=== PATIENT | female | born 1955 | race Caucasian/White ===

== ENCOUNTER → 2018-08-31 | Outpatient (CLI) | payer MEDICARE, OTHER ==
[~2018-08-31] MED LIST: REGADENOSON 0.4 MG/5 ML SYRINGE IV ONE
--- NOTE | 2018-08-31 11:03 | US ---
EXAMINATION TYPE: US carotid duplex BILAT DATE OF EXAM: 08/31/2018 COMPARISON: NONE CLINICAL HISTORY: Carotid Bruit R09.89, Athleroscerosis I70.90. EXAM MEASUREMENTS: RIGHT: Peak Systolic Velocity (PSV) cm/sec ----- Right CCA: 77.8 ----- Right ICA: 94.3 ----- Right ECA: 118.2 ICA/CCA ratio: 1.2 RIGHT: End Diastole cm/sec ----- Right CCA: 23.5 ----- Right ICA: 16.1 ----- Right ECA: 19.7 LEFT: Peak Systolic Velocity (PSV) cm/sec ----- Left CCA: 106.1 ----- Left ICA: 122.2 ----- Left ECA: 106.1 ICA/CCA ratio: 1.2 LEFT: End Diastole cm/sec ----- Left CCA: 22.0 ----- Left ICA: 26.8 ----- Left ECA: 15.5 VERTEBRALS (direction of flow): Right Vertebral: Antegrade Left Vertebral: Antegrade Rhythm: Arrhythmia Very tiny amount of calcified plaque Right ICA No elevated velocities IMPRESSION: 1. Atheromatous plaquing present on the right which could contribute to narrowing of less than 50%. Criteria for Assigning % of Stenosis / Diameter reduction (Estimation based on the indirect measurements of the internal carotid artery velocities (ICA PSV). 1. Normal (no stenosis)=ICA PSV < 125 cm/s: ratio < 2.0: ICA EDV<40 cm/s. 2. Less than 50% stenosis=ICA PSV < 125 cm/s: ratio < 2.0: ICA EDV<40 cm/s. 3. 50 to 69% stenosis=ICA PSV of 125 to 230 cm/s: ration 2.0 ? 4.0: ICA EDV 40-100 cm/s. 4. Greater than 70% stenosis to near occlusion= ICA PSV > 230 cm/s: ratio > 4.0: ICA EDV > 100 cm/s. 5. Near occlusion= ICA PSV velocities may be low or undetectable: variable ratio and ICA EDV. 6. Total occlusion=unable to detect flow.
--- NOTE | 2018-08-31 11:10 | NM ---
EXAMINATION TYPE: NM stress lexiscan cardiolite DATE OF EXAM: 08/31/2018 COMPARISON: NONE HISTORY: Carotid bruit, atherosclerosis TECHNIQUE: After the intravenous administration of 10.32 mCi Tc 99m Sestamibi - Cardiolite resting S PECT images acquired 45 minutes post injection. The patient received 0.4mg Lexiscan, 26.3 mCi Tc 99m Sestamibi - Stress images obtained [address] injection FINDINGS: There is diminished radiotracer accumulation within the inferior apical wall on the stress images. This has more normal radiotracer distribution on the resting images. Findings are compatible some stress-induced ischemic change. There is dyskinesia of the distal left ventricle. This is predominantly along the anterior and inferi or olivares. The cardiac base has a more normal appearance The ejection fraction of 47% is low. Normal greater than 50%. IMPRESSION: 1. Stress-induced ischemic change inferior cardiac apex. 2. Dyskinesia of the inferior and anterior cardiac apex. This is likely contributing to the low eject ion fraction of 47%.
--- NOTE | 2018-08-31 11:59 | ECHOF ---
Referral Reason:R09.89 MEASUREMENTS -------- HEIGHT: 175.3 cm WEIGHT: 145.2 kg BP: RVIDd: 2.7 cm (< 3.3) IVSd: 1.3 cm (0.6 - 1.1) LVIDd: 4.9 cm (3.9 - 5.3) LVPWd: 1.3 cm (0.6 - 1.1) IVSs: 1.6 cm LVIDs: 2.6 cm LVPWs: 1.6 cm LAESV Index (A-L): 19.93 ml/m Ao Diam: 2.9 cm (2.0 - 3.7) AV Cusp: 1.6 cm (1.5 - 2.6) LA Diam: 3.6 cm (2.7 - 3.8) MV E Nba: 0.85 m/s MV DecT: 220 ms MV A Nba: 0.82 m/s MV E/A Ratio: 1.04 RAP: 5.00 mmHg RVSP: 12.42 mmHg FINDINGS -------- Sinus rhythm. This was a technically adequate study. The left ventricular size is normal. There is mild concentric left ventricular hypertrophy. Overa ll left ventricular systolic function is normal with, an EF between 55 - 60 %. The right ventricle is normal in size and function. Normal LA size by volume 22+/-6 ml/m2. The right atrium is normal in size. There is mild aortic valve sclerosis. There is no evidence of aortic regurgitation. There is no e vidence of aortic stenosis. The mitral valve leaflets are mildly thickened. There is trace to mild mitral regurgitation. Trace tricuspid regurgitation present. Right ventricular systolic pressure is normal at < 35 mmHg. There is no evidence of pulmonary hypertension. The aortic root size is normal. Normal inferior vena cava with normal inspiratory collapse consistent with estimated right atrial pre ssure of 5 mmHg. There is no pericardial effusion. CONCLUSIONS -------- 1. Sinus rhythm. 2. This was a technically adequate study. 3. The left ventricular size is normal. 4. There is mild concentric left ventricular hypertrophy. 5. Overall left ventricular systolic function is normal with, an EF between 55 - 60 %. 6. Normal LA size by volume 22+/-6 ml/m2. 7. There is mild aortic valve sclerosis. 8. The mitral valve leaflets are mildly thickened. 9. There is trace to mild mitral regurgitation. 10. Trace tricuspid regurgitation present. 11. Right ventricular systolic pressure is normal at < 35 mmHg. 12. There is no evidence of pulmonary hypertension. 13. The aortic root size is normal. 14. There is no pericardial effusion. MENAGERIE SUPERINTENDENT: Jeremie Koo RDCS
--- NOTE | 2018-08-31 12:16 | EST ---
EXERCISE STRESS DATE OF SERVICE: 08/31/2018 AGE: 63 SEX: Female HT: 5'9" WT: 320 pounds PROTOCOL: Lexiscan Cardiolite STAGE: DURATION OF EXERCISE: HEART RATE REST: 58 BLOOD PRESSURE REST: 137/70 MAXIMUM HEART RATE ACHIEVED: 70 MAXIMUM BLOOD PRESSURE: 170/82 85% MPHR: 100% MPHR: METS: INDICATIONS: Carotid bruit. CLINICAL INFORMATION: Baseline EKG revealed normal sinus rhythm without significant ST-T changes. With Lexiscan administration, patient did not have any significant symptoms. Heart rate changed from 58 to 70 beats per minute blood pressure changed from 137/70 to 170/82. EKG was unremarkable. Rare PVCs were noted. By EKG criteria, this is unremarkable Lexiscan stress test with isolated PVCs. The nuclear scan results, which are more pertinent, will be reported by the radiologist. SALOMÓN / PERLA: [id number] /
== END | disposition home or self-care (01) ==
LOC: RADNMMAIN 07:40
PROVIDERS: ATTEND Family Medicine
DX: I08.0 Rheumatic disorders of both mitral and aortic valves (principal); I65.21 Occlusion and stenosis of right carotid artery
CPT/HCPCS: 93017; 93306; 93880; 78452; A9500; J2785

== ENCOUNTER → 2021-05-20 | Outpatient (CLI) | payer MEDICARE, OTHER ==
--- NOTE | 2021-05-20 16:04 | CT ---
EXAMINATION TYPE: CT chest wo con DATE OF EXAM: 05/20/2021 COMPARISON: None HISTORY: Dyspnea CT DLP: 802 mGycm, Automated exposure control for dose reduction was used. CONTRAST: Performed injected with 0 mL of Isovue 300. TECHNIQUE: Axial images were obtained at 5 mm thick sections. Reconstructed images are reviewed on [employer] computer in the coronal plane. FINDINGS: Portion of the thyroid visualized is normal. No suspicious lung nodules or focal infiltrates are present. Tracheobronchial tree as visualized appe ars normal. No enlarged mediastinal or hilar adenopathy is evident. The ascending aorta diameter at the level o f the main pulmonary artery is 3.5 cm. The main pulmonary artery diameter at the bifurcation is 3.2 cm. Coronary artery calcification is present. Limited CT sections are obtained through the upper abdomen. Abdomen is essentially unremarkable. Bila teral breast prostheses are noted. IMPRESSIONS: 1. No acute abnormality to account for dyspnea.
== END ==
LOC: CPPFTMAIN 13:11
PROVIDERS: ATTEND Nurse Practitioner Family
DX: R06.00 Dyspnea, unspecified (principal)
CPT/HCPCS: 71250; 94060; 94726; 94729